=== PATIENT | male | born 1990 | race Caucasian/White ===

== ENCOUNTER 2017-06-12 13:34 | Emergency (ER) | payer MEDICAID ==
[2017-06-12] MEDS: ACETAMINOPHEN 325 MG TAB PO (16:26)
[2017-06-12] MEDS: IBUPROFEN 600 MG TAB PO (16:26)
== END 2017-06-12 18:24 | disposition home or self-care (01) ==
LOC: FTE 13:34
DX: S09.90XA Unspecified injury of head, initial encounter (principal); H53.129 Transient visual loss, unspecified eye; R51 Headache; W01.198A Fall on same level from slipping, tripping and stumbling with subsequent striking against other object, initial encounter; Y92.320 Baseball field as the place of occurrence of the external cause
CPT/HCPCS: 70450; 99284-25

== ENCOUNTER 2018-02-13 10:51 | Emergency (ER) | payer MEDICAID ==
[2018-02-13] MEDS: KETOROLAC 60 MG INJ IM (11:32)
== END 2018-02-13 12:04 | disposition home or self-care (01) ==
LOC: FTE 10:51
DX: M54.31 Sciatica, right side (principal)
CPT/HCPCS: 96372; 99284-25